=== PATIENT | male | born 1995 | race Caucasian/White ===

== ENCOUNTER 2017-05-23 11:42 | Emergency (ER) | payer OTHER ==
[~2017-05-23] VITALS: Ht 180.3 cm; Wt 106.5 kg
[~2017-05-23 11:42] MED LIST: CETI10CA PO; PRED20TA PO; RANI150T9 PO; TRIA15CR55 TOP
[2017-05-23 11:45] VITALS: Ht 180.3 cm; Wt 106.5 kg
== END 2017-05-23 12:07 | disposition left against medical advice (07) ==
LOC: FTE 11:42
DX: Z53.21 Procedure and treatment not carried out due to patient leaving prior to being seen by health care provider (principal)